=== PATIENT | male | born 1980 | race Caucasian/White ===

== ENCOUNTER 2024-05-19 00:07 | Emergency (ER) | payer SELFPAY ==
[~2024-05-19] VITALS: Ht 160 cm; Wt 84.1 kg
[2024-05-19 00:12] VITALS: BP 132/73; PULSE 80; RESP 16; TEMP 98.4
== END 2024-05-19 02:09 | disposition home or self-care (01) ==
LOC: EMS 00:08
DX: S02.119A Unspecified fracture of occiput, initial encounter for closed fracture (principal); W01.0XXA Fall on same level from slipping, tripping and stumbling without subsequent striking against object, initial encounter; Y93.89 Activity, other specified; Y92.89 Other specified places as the place of occurrence of the external cause; Y99.8 Other external cause status
CPT/HCPCS: 29105; 99283